=== PATIENT | female | born 1960 | race African-American/Black ===

== ENCOUNTER 2017-01-09 15:01 | Inpatient (IN) | payer MEDICAID ==
[~2017-01-09] VITALS: Ht 165.1 cm; Wt 121.6 kg
[2017-01-09 18:29] LABS: BASOPHILS % 1.2 % (0.0-2.0); EOSINOPHILS % 1.9 % (0.0-5.0); HEMATOCRIT. 38.2 % (36.0-48.0); HEMOGLOBIN. 12.6 g/dL (12.0-16.0); LYMPHOCYTES % 29.9 % (20.0-50.0); MEAN CORPUSCULAR HEMOGLOBIN 25.1 pg (28.0-32.0); MEAN CORPUSCULAR VOLUME 75.9 fL (81.0-99.0); MEAN PLATELET VOLUME 9.6 fl (7.4-10.4); MONOCYTES % 7.3 % (2.0-8.0); NEUTROPHILS % 59.7 % (40.0-76.0); PLATELET 138 x1000/uL (130-400); RED BLOOD CELL COUNT 5.03 mill/uL (4.2-5.4); RED CELL DISTRIBUTION WIDTH 19.9 % (11.6-14.6)
[2017-01-09 18:45] LABS: CARBON DIOXIDE 32 mEq/L (21-32); CHLORIDE 108 mEq/L (98-107); TROPONIN I 0.07 ng/mL (0.00-0.04)
[2017-01-10 00:30] VITALS: BP 177/89
[2017-01-10] MEDS ORDERED: CLONIDINE 0.1MG TABLET PO PRN (00:45)
[2017-01-10] MEDS ORDERED: ACETAMINOPHEN 325MG TABLET PO PRN (00:45)
[2017-01-10] MEDS ORDERED: ONDANSETRON HCL 4MG/2ML VIAL IV PRN (00:45)
[2017-01-10] MEDS ORDERED: IPRATROPIUM/ALBUTEROL 0.5-3(2.5)MG/3ML NEB INH PRN (00:45)
[2017-01-10] MEDS ORDERED: MAGNESIUM/ALUMINUM HYDROXIDE/SIMETHICONE 30ML UDC PO PRN (00:45)
[2017-01-10] MEDS ORDERED: DOCUSATE SODIUM 100MG CAPSULE PO PRN (00:45)
[2017-01-10] MEDS ORDERED: DEXTROSE 50% WATER 50ML SYRINGE IV PRN (01:30)
[2017-01-10] MEDS ORDERED: ATOR20TA65 PO (01:56)
[2017-01-10] MEDS ORDERED: CARV12.545 PO (01:56)
[2017-01-10] MEDS ORDERED: GABA-531 PO (01:56)
[2017-01-10] MEDS ORDERED: GLIP10TA10 PO (01:56)
[2017-01-10] MEDS ORDERED: METF10002 PO (01:56)
[2017-01-10] MEDS ORDERED: LISI-604 PO (01:56)
[2017-01-10 04:00] VITALS: BP 161/79
[2017-01-10 06:35] LABS: CARBON DIOXIDE 31 mEq/L (21-32); CHLORIDE 106 mEq/L (98-107); CREATINE KINASE 159 IU/L (26-192); CREATINE KINASE MB FRACTION 3.2 ng/mL (0.5-3.6); TROPONIN I 0.07 ng/mL (0.00-0.04)
[2017-01-10] MEDS: BLOOD SUGAR DIAGNOSTIC STRIP TEST SCH ×4 (06:59→21:28)
[2017-01-10] MEDS: INSULIN LISPRO 100 UNITS/ML SUBCUT SCH ×5 (07:50→21:33)
[2017-01-10 08:00] VITALS: BP 149/86
[2017-01-10] MEDS ORDERED: ENOXAPARIN 40MG/0.4ML SYR SUBCUT SCH (09:00)
[2017-01-10] MEDS: ASPIRIN 81MG EC TABLET PO SCH (09:38)
[2017-01-10 12:00] VITALS: BP 143/96
[2017-01-10 15:23] LABS: CREATINE KINASE MB FRACTION 2.9 ng/mL (0.5-3.6); TROPONIN I 0.06 ng/mL (0.00-0.04)
[2017-01-10 16:00] VITALS: BP 152/92
[2017-01-10 20:00] VITALS: BP 161/88
[2017-01-10 20:24] LABS: *AMPHETAMINES SCREEN URINE NEGATIVE (NEGATIVE); *BARBITURATES SCREEN URINE NEGATIVE (NEGATIVE); *BENZODIAZEPINES SCREEN URINE NEGATIVE (NEGATIVE); *COCAINE SCREEN URINE NEGATIVE (NEGATIVE); CANNABINOID URINE SCREEN NEGATIVE (NEGATIVE); METHADONE URINE SCREEN NEGATIVE (NEGATIVE); OPIATES URINE SCREEN NEGATIVE (NEGATIVE); PHENCYCLIDINE URINE SCREEN NEGATIVE (NEGATIVE)
[2017-01-10] MEDS: ENOXAPARIN 40MG/0.4ML SYR SUBCUT SCH (21:25)
[2017-01-10] MEDS: INSULIN DETEMIR UD 100 UNITS/ML SYR SUBCUT SCH (21:34)
[2017-01-11] VITALS: BP 142/98
[2017-01-11 04:00] VITALS: BP 151/92
[2017-01-11 06:32] LABS: BASOPHILS % 0.6 % (0.0-2.0); EOSINOPHILS % 1.9 % (0.0-5.0); HEMATOCRIT. 38.1 % (36.0-48.0); HEMOGLOBIN. 12.6 g/dL (12.0-16.0); LYMPHOCYTES % 31.2 % (20.0-50.0); MEAN CORPUSCULAR VOLUME 75.4 fL (81.0-99.0); MEAN PLATELET VOLUME 10.1 fl (7.4-10.4); MONOCYTES % 8.4 % (2.0-8.0); NEUTROPHILS % 57.9 % (40.0-76.0); PLATELET 134 x1000/uL (130-400); RED BLOOD CELL COUNT 5.05 mill/uL (4.2-5.4); RED CELL DISTRIBUTION WIDTH 19.8 % (11.6-14.6)
[2017-01-11 06:55] LABS: CARBON DIOXIDE 29 mEq/L (21-32); CHLORIDE 102 mEq/L (98-107); HDL CHOLESTEROL 28 mg/dL (40-59); LDL CHOLESTEROL 121 mg/dL (5-100)
[2017-01-11] MEDS: BLOOD SUGAR DIAGNOSTIC STRIP TEST SCH ×4 (07:20→21:20)
[2017-01-11] MEDS: INSULIN LISPRO 100 UNITS/ML SUBCUT SCH ×4 (07:50→21:24)
[2017-01-11 07:52] VITALS: BP 161/88
[2017-01-11] MEDS: HYDROCODONE/ACETAMINOPHEN 5/325MG TABLET PO PRN ×2 (09:07→13:36)
[2017-01-11] MEDS: ASPIRIN 81MG EC TABLET PO SCH (09:07)
[2017-01-11] MEDS: ENOXAPARIN 40MG/0.4ML SYR SUBCUT SCH ×2 (09:08→21:18)
[2017-01-11] MEDS: INSULIN DETEMIR UD 100 UNITS/ML SYR SUBCUT SCH ×2 (10:34→21:24)
[2017-01-11 12:00] VITALS: BP 131/86
[2017-01-11 16:02] VITALS: BP 149/92
[2017-01-11 20:00] VITALS: BP 158/88
[2017-01-12] VITALS: BP 160/81
[2017-01-12 04:30] VITALS: BP 155/95
[2017-01-12] MEDS: BLOOD SUGAR DIAGNOSTIC STRIP TEST SCH ×2 (06:36→11:57)
[2017-01-12 07:41] VITALS: BP 154/88
[2017-01-12] MEDS: INSULIN LISPRO 100 UNITS/ML SUBCUT SCH ×2 (08:24→12:00)
[2017-01-12] MEDS: ASPIRIN 81MG EC TABLET PO SCH (08:25)
[2017-01-12] MEDS: ENOXAPARIN 40MG/0.4ML SYR SUBCUT SCH (08:26)
[2017-01-12] MEDS: INSULIN DETEMIR UD 100 UNITS/ML SYR SUBCUT SCH (10:05)
[2017-01-12 12:30] VITALS: BP 140/94
== END 2017-01-12 15:05 | disposition home or self-care (01) | DRG 194 ==
LOC: ER 15:19 → 6WST 22:13 → ENRESERV 22:34
PROVIDERS: ADMIT Internal Medicine; ATTEND Internal Medicine
DX: I11.0 Hypertensive heart disease with heart failure (principal); Z68.41 Body mass index [BMI] 40.0-44.9, adult; I42.9 Cardiomyopathy, unspecified; E66.01 Morbid (severe) obesity due to excess calories; E11.9 Type 2 diabetes mellitus without complications; I50.9 Heart failure, unspecified; E78.5 Hyperlipidemia, unspecified; I25.10 Atherosclerotic heart disease of native coronary artery without angina pectoris; Z91.19 Patient's noncompliance with other medical treatment and regimen; Z95.0 Presence of cardiac pacemaker
CPT/HCPCS: 36415; 71010; 80048; 80053; 80061; 80305; 82550; 82553; 82962; 83880; 84443; 84484; 85025; 93005; 93306; 93970; 99285; J1650; J1815

== ENCOUNTER 2019-04-22 08:41 | Inpatient (IN) | payer OTHER ==
[2019-04-22] VITALS (33 sets, daily range): BP systolic 102–162; BP diastolic 58–102
[~2019-04-22] VITALS: Ht 167.6 cm; Wt 110.3 kg
[~2019-04-22 08:41] MED LIST: ATOR20TA65 PO; CARV12.545 PO; ETOMIDATE 2MG/ML 10ML VIAL IV ONE; GABA-531 PO; GLIP10TA10 PO; LISI-604 PO; METF-416 PO; SUCCINYLCHOLINE CHLORIDE 200MG/10ML IV ONE
[2019-04-22] MEDS ORDERED: PIPERACILLIN/TAZ 3.375G PREMIX 50 ML IV ONE (09:15)
[2019-04-22] MEDS ORDERED: PROPOFOL 10MG/ML 100ML 100 ML IV SCH (09:15)
[2019-04-22] MEDS ORDERED: SUCCINYLCHOLINE CHLORIDE 200MG/10ML IV ONE (09:15)
[2019-04-22] MEDS ORDERED: ETOMIDATE 2MG/ML 10ML VIAL IV ONE (09:15)
[2019-04-22] MEDS ORDERED: SODIUM CHLORIDE 0.9% 1000ML BAG (SEPSIS BOLUS) IV ONE (09:15)
[2019-04-22] MEDS ORDERED: VANCOMYCIN 1 G PREMIX 200 ML IV ONE (09:15)
[2019-04-22] MEDS ORDERED: PROPOFOL 200MG/20ML VIAL IV ONE (09:15)
[2019-04-22 09:31] LABS: BASOPHILS % 1.5 % (0.0-2.0); EOSINOPHILS % 1.3 % (0.0-5.0); HEMATOCRIT. 43.1 % (36.0-48.0); HEMOGLOBIN. 13.5 g/dL (12.0-16.0); LYMPHOCYTES % 35.2 % (20.0-50.0); MEAN CORPUSCULAR HEMOGLOBIN 25.1 pg (28.0-32.0); MEAN PLATELET VOLUME 9.8 fl (7.4-10.4); MONOCYTES % 6.3 % (2.0-8.0); NEUTROPHILS % 55.7 % (40.0-76.0); PLATELET 197 x1000/uL (130-400); RED BLOOD CELL COUNT 5.39 mill/uL (4.2-5.4); RED CELL DISTRIBUTION WIDTH 19.7 % (11.6-14.6)
[2019-04-22 09:38] LABS: CHLORIDE 108 mEq/L (98-107)
[2019-04-22 09:40] LABS: PARTIAL THROMBOPLASTIN TIME 27.3 sec (23.4-31.0); PROTHROMBIN TIME 10.6 sec (9.6-11.0)
[2019-04-22] MEDS ORDERED: FUROSEMIDE 40MG/4ML VIAL IV ONE (09:45)
[2019-04-22] MEDS ORDERED: ASPIRIN 300MG SUPP PR ONE (09:45)
[2019-04-22] MEDS ORDERED: NITROGLYCERIN OINT 1GM/INCH UDPKT TD ONE (09:45)
[2019-04-22] MEDS ORDERED: METRONIDAZOLE 500 MG PREMIX 100 ML IV ONE (10:00)
[2019-04-22 10:26] LABS: BG BASE EXCESS -5.6 mmol/L (-2.0-2.0); BG CARBOXYHEMOGLOBIN 3.2 % (0.5-1.5); BG DEOXYHEMOGLOBIN 23.6 % (0.0-5.0); BG FRACTION INSPIRED OXYGEN 100; BG HCO3 ACT 22.7 mmol/L (22.0-26.0); BG METHEMOGLOBIN 0.3 % (0.0-1.5); BG OXYGEN SATURATION 75.5 % (92.0-98.5); BG OXYHEMOGLOBIN 72.9 % (94.0-97.0); BG PCO2 56.7 mmHg (35.0-45.0); BG PH 7.221 (7.350-7.450); BG PO2 46.4 mmHg (75.0-100.0); BG SAMPLE SITE RIGHT BRACHIAL; BG TIDAL VOLUME(mL) 500 mL; BG TOTAL HEMOGLOBIN 13.9 g/dL (12.0-18.0); BG VENT MODE VENT - A/C; BG VENT RATE 14 set
[2019-04-22 10:44] LABS: CLARITY URINE CLOUDY (CLEAR); COLOR URINE YELLOW (YELLOW); KETONES URINE NEGATIVE (NEGATIVE); LEUKOCYTE ESTERASE URINE NEGATIVE (NEGATIVE); NITRITE URINE NEGATIVE (NEGATIVE); OCCULT BLOOD URINE 3+ (NEGATIVE); PROTEIN URINE 4+ (NEGATIVE); SPECIFIC GRAVITY URINE 1.019 (1.005-1.030); UROBILINOGEN URINE 0.2 E.U./dL (0.2-1.0)
[2019-04-22 12:29] LABS: BG BASE EXCESS -1.3 mmol/L (-2.0-2.0); BG CARBOXYHEMOGLOBIN 2.6 % (0.5-1.5); BG DEOXYHEMOGLOBIN 10.7 % (0.0-5.0); BG FRACTION INSPIRED OXYGEN 100; BG METHEMOGLOBIN 0.2 % (0.0-1.5); BG OXYHEMOGLOBIN 86.5 % (94.0-97.0); BG PCO2 54.5 mmHg (35.0-45.0); BG PH 7.297 (7.350-7.450); BG PO2 59.7 mmHg (75.0-100.0); BG SAMPLE SITE RIGHT BRACHIAL; BG TIDAL VOLUME(mL) 500 mL; BG TOTAL HEMOGLOBIN 13.9 g/dL (12.0-18.0); BG VENT MODE VENT - A/C; BG VENT RATE 14 set
[2019-04-22] MEDS ORDERED: ONDANSETRON HCL 4MG/2ML INJ IV PRN (13:15)
[2019-04-22] MEDS ORDERED: IPRATROPIUM/ALBUTEROL 0.5-3(2.5)MG/3ML NEB HHN PRN (13:45)
[2019-04-22] MEDS ORDERED: PIPERACILLIN/TAZ 3.375G PREMIX 50 ML IV SCH (15:00)
[2019-04-22] MEDS ORDERED: NOREPINEPHRINE 16 MG in DEXT 5% WATER 484 ML IV PRN ×4 (15:00)
[2019-04-22] MEDS: PROPOFOL 10MG/ML 100ML 100 ML IV PRN ×3 (15:06→20:35)
[2019-04-22] MEDS: ENOXAPARIN 30MG/0.3ML SYR SUBCUT SCH (15:38)
[2019-04-22] MEDS: GABAPENTIN 300MG CAPSULE PO SCH (15:38)
[2019-04-22] MEDS: LISINOPRIL 20MG TABLET PO SCH (15:38)
[2019-04-22] MEDS: PIPERACILLIN/TAZOBACTAM 3.375 G in DEXTROSE 5% WATER 50 ML IV SCH ×2 (15:39→21:08)
[2019-04-22 15:57] LABS: BG BASE EXCESS -0.3 mmol/L (-2.0-2.0); BG CARBOXYHEMOGLOBIN 1.2 % (0.5-1.5); BG DEOXYHEMOGLOBIN 2.4 % (0.0-5.0); BG FRACTION INSPIRED OXYGEN 100; BG HCO3 ACT 26.7 mmol/L (22.0-26.0); BG METHEMOGLOBIN 0.3 % (0.0-1.5); BG OXYGEN SATURATION 97.6 % (92.0-98.5); BG OXYHEMOGLOBIN 96.1 % (94.0-97.0); BG PCO2 53.5 mmHg (35.0-45.0); BG PH 7.316 (7.350-7.450); BG PO2 108.5 mmHg (75.0-100.0); BG SAMPLE SITE RIGHT RADIAL; BG TIDAL VOLUME(mL) 500 mL; BG TOTAL HEMOGLOBIN 13.6 g/dL (12.0-18.0); BG VENT MODE VENT - A/C; BG VENT RATE 16 set
[2019-04-22] MEDS: IPRATROPIUM/ALBUTEROL 0.5-3(2.5)MG/3ML NEB HHN SCH ×2 (16:44→20:26)
[2019-04-22] MEDS: VANCOMYCIN 1,250 MG in DEXT 5% WATER 250 ML IV SCH (17:01)
[2019-04-22] MEDS: FUROSEMIDE 100MG/10ML VIAL IV SCH (17:02)
[2019-04-22] MEDS ORDERED: DEXTROSE 50% WATER 50ML SYRINGE IV PRN (18:00)
[2019-04-22] MEDS: INSULIN LISPRO 100 UNITS/ML SUBCUT SCH ×3 (18:12→21:32)
[2019-04-22] MEDS: BLOOD SUGAR DIAGNOSTIC STRIP TEST SCH ×2 (18:13→21:33)
[2019-04-22] MEDS: ATORVASTATIN CALCIUM 20MG TABLET PO SCH (21:07)
[2019-04-22] MEDS: CARVEDILOL 12.5MG TABLET PO SCH (21:08)
[2019-04-22] MEDS: FAMOTIDINE 20MG TABLET PO SCH (21:08)
[2019-04-23] VITALS (80 sets, daily range): BP systolic 88–160; BP diastolic 55–92
[2019-04-23] MEDS: PROPOFOL 10MG/ML 100ML 100 ML IV PRN ×6 (00:20→19:53)
[2019-04-23] MEDS: IPRATROPIUM/ALBUTEROL 0.5-3(2.5)MG/3ML NEB HHN SCH ×6 (00:28→20:38)
[2019-04-23 05:15] LABS: BASOPHILS % 0.2 % (0.0-2.0); EOSINOPHILS % 0.1 % (0.0-5.0); HEMATOCRIT. 35.4 % (36.0-48.0); HEMOGLOBIN. 11.5 g/dL (12.0-16.0); LYMPHOCYTES % 7.7 % (20.0-50.0); MEAN CORPUSCULAR HEMOGLOBIN 25.1 pg (28.0-32.0); MEAN CORPUSCULAR VOLUME 77.2 fL (81.0-99.0); MEAN PLATELET VOLUME 9.9 fl (7.4-10.4); MONOCYTES % 4.4 % (2.0-8.0); NEUTROPHILS % 87.6 % (40.0-76.0); PLATELET 144 x1000/uL (130-400); RED BLOOD CELL COUNT 4.59 mill/uL (4.2-5.4); RED CELL DISTRIBUTION WIDTH 19.9 % (11.6-14.6)
[2019-04-23 05:20] LABS: CHLORIDE 107 mEq/L (98-107)
[2019-04-23 05:29] LABS: LDL CHOLESTEROL 61 mg/dL (5-100)
[2019-04-23 05:30] LABS: CREATINE KINASE 453 IU/L (26-192); CREATINE KINASE MB FRACTION 3.7 ng/mL (0.5-3.6)
[2019-04-23 05:31] LABS: HDL CHOLESTEROL 30 mg/dL (40-59)
[2019-04-23] MEDS: PIPERACILLIN/TAZOBACTAM 3.375 G in DEXTROSE 5% WATER 50 ML IV SCH ×3 (06:28→22:22)
[2019-04-23] MEDS: VANCOMYCIN 1,250 MG in DEXT 5% WATER 250 ML IV SCH (06:28)
[2019-04-23] MEDS: ENOXAPARIN 30MG/0.3ML SYR SUBCUT SCH ×2 (06:30→17:48)
[2019-04-23] MEDS: BLOOD SUGAR DIAGNOSTIC STRIP TEST SCH ×4 (07:09→21:00)
[2019-04-23] MEDS: INSULIN LISPRO 100 UNITS/ML SUBCUT SCH ×4 (07:12→21:00)
[2019-04-23 08:38] LABS: BG BASE EXCESS 1.2 mmol/L (-2.0-2.0); BG CARBOXYHEMOGLOBIN 0.4 % (0.5-1.5); BG DEOXYHEMOGLOBIN 0.9 % (0.0-5.0); BG FRACTION INSPIRED OXYGEN 80; BG METHEMOGLOBIN 0.2 % (0.0-1.5); BG OXYGEN SATURATION 99.1 % (92.0-98.5); BG OXYHEMOGLOBIN 98.5 % (94.0-97.0); BG PCO2 47.4 mmHg (35.0-45.0); BG PH 7.373 (7.350-7.450); BG PO2 194.4 mmHg (75.0-100.0); BG SAMPLE SITE RIGHT RADIAL; BG TIDAL VOLUME(mL) 500 mL; BG TOTAL HEMOGLOBIN 12.3 g/dL (12.0-18.0); BG VENT MODE VENT - A/C; BG VENT RATE 16 set
[2019-04-23] MEDS: GABAPENTIN 300MG CAPSULE PO SCH (09:45)
[2019-04-23] MEDS: CARVEDILOL 12.5MG TABLET PO SCH ×2 (09:45→21:29)
[2019-04-23] MEDS: FAMOTIDINE 20MG TABLET PO SCH ×2 (09:45→21:27)
[2019-04-23] MEDS: LISINOPRIL 20MG TABLET PO SCH (09:45)
[2019-04-23] MEDS: FUROSEMIDE 100MG/10ML VIAL IV SCH ×2 (09:45→17:48)
[2019-04-23] MEDS: POTASSIUM CHLORIDE 20MEQ/PACKET PO SCH ×2 (10:10→17:48)
[2019-04-23 11:55] LABS: BG BASE EXCESS 1.6 mmol/L (-2.0-2.0); BG CARBOXYHEMOGLOBIN 0.1 % (0.5-1.5); BG DEOXYHEMOGLOBIN 1.7 % (0.0-5.0); BG FRACTION INSPIRED OXYGEN 60; BG HCO3 ACT 26.3 mmol/L (22.0-26.0); BG OXYGEN SATURATION 98.3 % (92.0-98.5); BG OXYHEMOGLOBIN 98.2 % (94.0-97.0); BG PCO2 41.8 mmHg (35.0-45.0); BG PH 7.417 (7.350-7.450); BG SAMPLE SITE RIGHT RADIAL; BG TIDAL VOLUME(mL) 500 mL; BG TOTAL HEMOGLOBIN 12.2 g/dL (12.0-18.0); BG VENT MODE VENT - A/C; BG VENT RATE 16 set
[2019-04-23] MEDS ORDERED: MAGNESIUM 2 G PREMIX 50 ML IV SCH (12:00)
[2019-04-23] MEDS ORDERED: FAMOTIDINE 20MG TABLET PO SCH (21:00)
[2019-04-23] MEDS: ATORVASTATIN CALCIUM 20MG TABLET PO SCH (21:27)
[2019-04-24] VITALS (74 sets, daily range): BP systolic 67–163; BP diastolic 38–111
[2019-04-24] MEDS: IPRATROPIUM/ALBUTEROL 0.5-3(2.5)MG/3ML NEB HHN SCH ×6 (00:18→19:53)
[2019-04-24] MEDS ORDERED: VANCOMYCIN 1 G PREMIX 200 ML IV SCH ×2 (01:00→18:00)
[2019-04-24] MEDS: PROPOFOL 10MG/ML 100ML 100 ML IV PRN ×7 (02:49→23:00)
[2019-04-24] MEDS: PIPERACILLIN/TAZOBACTAM 3.375 G in DEXTROSE 5% WATER 50 ML IV SCH (06:27)
[2019-04-24] MEDS: ENOXAPARIN 30MG/0.3ML SYR SUBCUT SCH ×2 (06:28→17:18)
[2019-04-24 06:32] LABS: CHLORIDE 108 mEq/L (98-107)
[2019-04-24 06:38] LABS: EOSINOPHILS % 1.2 % (0.0-5.0); HEMATOCRIT. 34.4 % (36.0-48.0); HEMOGLOBIN. 11.4 g/dL (12.0-16.0); LYMPHOCYTES % 17.3 % (20.0-50.0); MEAN CORPUSCULAR HEMOGLOBIN 25.3 pg (28.0-32.0); MEAN CORPUSCULAR VOLUME 76.7 fL (81.0-99.0); MEAN PLATELET VOLUME 9.4 fl (7.4-10.4); MONOCYTES % 7.1 % (2.0-8.0); NEUTROPHILS % 73.4 % (40.0-76.0); PLATELET 134 x1000/uL (130-400); RED BLOOD CELL COUNT 4.49 mill/uL (4.2-5.4); RED CELL DISTRIBUTION WIDTH 20.3 % (11.6-14.6)
[2019-04-24 06:46] LABS: CREATINE KINASE 797 IU/L (26-192)
[2019-04-24 06:50] LABS: CREATINE KINASE MB FRACTION 1.3 ng/mL (0.5-3.6)
[2019-04-24] MEDS: BLOOD SUGAR DIAGNOSTIC STRIP TEST SCH ×4 (06:54→23:43)
[2019-04-24] MEDS: CARVEDILOL 12.5MG TABLET PO SCH ×2 (08:58→21:31)
[2019-04-24] MEDS: GABAPENTIN 300MG CAPSULE PO SCH (08:58)
[2019-04-24] MEDS: FUROSEMIDE 100MG/10ML VIAL IV SCH ×2 (08:58→16:40)
[2019-04-24] MEDS: FAMOTIDINE 20MG TABLET PO SCH ×2 (08:58→21:31)
[2019-04-24] MEDS: POTASSIUM CHLORIDE 20MEQ/PACKET PO SCH ×2 (08:58→16:40)
[2019-04-24] MEDS: LISINOPRIL 20MG TABLET PO SCH (08:58)
[2019-04-24] MEDS: INSULIN LISPRO 100 UNITS/ML SUBCUT SCH ×4 (08:59→23:42)
[2019-04-24] MEDS ORDERED: FAMOTIDINE 20MG TABLET PO SCH (09:00)
[2019-04-24 09:02] LABS: BG BASE EXCESS 2.9 mmol/L (-2.0-2.0); BG CARBOXYHEMOGLOBIN 0.4 % (0.5-1.5); BG FRACTION INSPIRED OXYGEN 45; BG HCO3 ACT 28.4 mmol/L (22.0-26.0); BG METHEMOGLOBIN 0.2 % (0.0-1.5); BG OXYHEMOGLOBIN 97.4 % (94.0-97.0); BG PCO2 47.4 mmHg (35.0-45.0); BG PH 7.395 (7.350-7.450); BG SAMPLE SITE LEFT RADIAL; BG TIDAL VOLUME(mL) 500 mL; BG TOTAL HEMOGLOBIN 12.3 g/dL (12.0-18.0); BG VENT MODE VENT - A/C; BG VENT RATE 16 set
[2019-04-24] MEDS ORDERED: LORAZEPAM 2MG/ML CPJ IV PRN (10:00)
[2019-04-24] MEDS ORDERED: SODIUM BICARBONATE 4% (2.4MEQ) 5ML VIAL IV ONE (11:30)
[2019-04-24] MEDS ORDERED: LIDOCAINE HCL 1% 20ML VIAL (Pyxis) INJ ONE (11:30)
[2019-04-24] MEDS: PIPERACILLIN/TAZOBACTAM 3.375 G in DEXT 5% WATER 100 ML IV SCH ×3 (12:00→23:48)
[2019-04-24] MEDS: ACETAMINOPHEN 325MG TABLET PO PRN (15:06)
[2019-04-24] MEDS: ATORVASTATIN CALCIUM 20MG TABLET PO SCH (21:31)
[2019-04-25] VITALS (46 sets, daily range): BP systolic 98–149; BP diastolic 0–101
[2019-04-25] MEDS: IPRATROPIUM/ALBUTEROL 0.5-3(2.5)MG/3ML NEB HHN SCH ×6 (00:27→19:42)
[2019-04-25] MEDS: PROPOFOL 10MG/ML 100ML 100 ML IV PRN ×2 (04:18→06:44)
[2019-04-25 05:39] LABS: BASOPHILS % 0.9 % (0.0-2.0); EOSINOPHILS % 2.3 % (0.0-5.0); HEMATOCRIT. 34.9 % (36.0-48.0); HEMOGLOBIN. 11.6 g/dL (12.0-16.0); LYMPHOCYTES % 14.9 % (20.0-50.0); MEAN CORPUSCULAR HEMOGLOBIN 25.5 pg (28.0-32.0); MEAN CORPUSCULAR VOLUME 76.6 fL (81.0-99.0); MEAN PLATELET VOLUME 9.9 fl (7.4-10.4); MONOCYTES % 7.7 % (2.0-8.0); NEUTROPHILS % 74.2 % (40.0-76.0); PLATELET 142 x1000/uL (130-400); RED BLOOD CELL COUNT 4.56 mill/uL (4.2-5.4); RED CELL DISTRIBUTION WIDTH 19.9 % (11.6-14.6)
[2019-04-25] MEDS: PIPERACILLIN/TAZOBACTAM 3.375 G in DEXT 5% WATER 100 ML IV SCH ×3 (05:50→17:33)
[2019-04-25] MEDS: ENOXAPARIN 30MG/0.3ML SYR SUBCUT SCH ×2 (05:50→17:33)
[2019-04-25] MEDS: BLOOD SUGAR DIAGNOSTIC STRIP TEST SCH ×3 (06:50→17:33)
[2019-04-25] MEDS: INSULIN LISPRO 100 UNITS/ML SUBCUT SCH ×3 (06:52→17:50)
[2019-04-25 08:04] LABS: BG BASE EXCESS 2.4 mmol/L (-2.0-2.0); BG CARBOXYHEMOGLOBIN 0.3 % (0.5-1.5); BG DEOXYHEMOGLOBIN 2.7 % (0.0-5.0); BG FRACTION INSPIRED OXYGEN 45; BG HCO3 ACT 27.5 mmol/L (22.0-26.0); BG OXYGEN SATURATION 97.3 % (92.0-98.5); BG PCO2 44.2 mmHg (35.0-45.0); BG PH 7.411 (7.350-7.450); BG PO2 105.1 mmHg (75.0-100.0); BG SAMPLE SITE RIGHT RADIAL; BG TIDAL VOLUME(mL) 500 mL; BG VENT MODE VENT - A/C; BG VENT RATE 16 set
[2019-04-25] MEDS: FUROSEMIDE 100MG/10ML VIAL IV SCH ×2 (08:38→16:41)
[2019-04-25] MEDS: GABAPENTIN 300MG CAPSULE PO SCH (08:39)
[2019-04-25] MEDS: POTASSIUM CHLORIDE 20MEQ/PACKET PO SCH ×2 (08:39→16:42)
[2019-04-25] MEDS: FAMOTIDINE 20MG TABLET PO SCH ×2 (08:39→22:14)
[2019-04-25] MEDS: CARVEDILOL 12.5MG TABLET PO SCH ×2 (08:39→22:14)
[2019-04-25] MEDS: LISINOPRIL 20MG TABLET PO SCH (08:40)
[2019-04-25] MEDS: MIDAZOLAM HCL 100 MG in DEXT 5% WATER 80 ML IV PRN (11:39)
[2019-04-25] MEDS: ACETAMINOPHEN 325MG TABLET PO PRN ×2 (12:54→22:15)
[2019-04-25] MEDS ORDERED: CEFTRIAXONE 2 G PREMIX 50 ML IV SCH (22:00)
[2019-04-25] MEDS: ATORVASTATIN CALCIUM 20MG TABLET PO SCH (22:13)
[2019-04-26] VITALS (52 sets, daily range): BP systolic 73–183; BP diastolic 35–127
[2019-04-26] MEDS: IPRATROPIUM/ALBUTEROL 0.5-3(2.5)MG/3ML NEB HHN SCH ×6 (00:19→20:49)
[2019-04-26] MEDS: MIDAZOLAM HCL 100 MG in DEXT 5% WATER 80 ML IV PRN (00:46)
[2019-04-26] MEDS: INSULIN LISPRO 100 UNITS/ML SUBCUT SCH ×4 (01:37→17:31)
[2019-04-26] MEDS: CEFTRIAXONE 2 G in DEXTROSE 5% WATER 50 ML IV SCH ×2 (01:39→21:07)
[2019-04-26 05:20] LABS: BASOPHILS % 0.8 % (0.0-2.0); EOSINOPHILS % 3.3 % (0.0-5.0); HEMATOCRIT. 34.5 % (36.0-48.0); HEMOGLOBIN. 11.5 g/dL (12.0-16.0); LYMPHOCYTES % 14.7 % (20.0-50.0); MEAN CORPUSCULAR HEMOGLOBIN 25.3 pg (28.0-32.0); MEAN CORPUSCULAR VOLUME 76.2 fL (81.0-99.0); MEAN PLATELET VOLUME 9.5 fl (7.4-10.4); MONOCYTES % 8.7 % (2.0-8.0); NEUTROPHILS % 72.5 % (40.0-76.0); PLATELET 150 x1000/uL (130-400); RED BLOOD CELL COUNT 4.52 mill/uL (4.2-5.4); RED CELL DISTRIBUTION WIDTH 19.6 % (11.6-14.6)
[2019-04-26] MEDS: BLOOD SUGAR DIAGNOSTIC STRIP TEST SCH ×5 (06:27→23:52)
[2019-04-26] MEDS: ENOXAPARIN 30MG/0.3ML SYR SUBCUT SCH ×2 (06:28→17:30)
[2019-04-26 07:45] LABS: BG BASE EXCESS 3.3 mmol/L (-2.0-2.0); BG CARBOXYHEMOGLOBIN 0.3 % (0.5-1.5); BG DEOXYHEMOGLOBIN 1.4 % (0.0-5.0); BG FRACTION INSPIRED OXYGEN 45; BG HCO3 ACT 28.1 mmol/L (22.0-26.0); BG METHEMOGLOBIN 0.3 % (0.0-1.5); BG OXYGEN SATURATION 98.6 % (92.0-98.5); BG PCO2 43.8 mmHg (35.0-45.0); BG PH 7.425 (7.350-7.450); BG PO2 143.8 mmHg (75.0-100.0); BG SAMPLE SITE RIGHT RADIAL; BG TIDAL VOLUME(mL) 500 mL; BG TOTAL HEMOGLOBIN 12.2 g/dL (12.0-18.0); BG VENT MODE VENT - A/C; BG VENT RATE 16 set
[2019-04-26] MEDS: FUROSEMIDE 100MG/10ML VIAL IV SCH ×2 (08:48→17:30)
[2019-04-26] MEDS: CARVEDILOL 12.5MG TABLET PO SCH ×2 (08:48→21:07)
[2019-04-26] MEDS: GABAPENTIN 300MG CAPSULE PO SCH (08:49)
[2019-04-26] MEDS: FAMOTIDINE 20MG TABLET PO SCH ×2 (08:49→21:07)
[2019-04-26] MEDS: LISINOPRIL 20MG TABLET PO SCH (08:50)
[2019-04-26] MEDS: POTASSIUM CHLORIDE 20MEQ/PACKET PO SCH ×2 (08:50→17:30)
[2019-04-26] MEDS ORDERED: CLONIDINE 0.1MG TABLET PO PRN (12:00)
[2019-04-26] MEDS: AMLODIPINE 2.5MG TABLET PO SCH ×2 (12:09→21:07)
[2019-04-26] MEDS: LORAZEPAM 2MG/ML CPJ IV PRN ×2 (12:09→20:58)
[2019-04-26] MEDS: MORPHINE SULFATE 2 MG/ML CPJ (NOT FOR IM USE) IV PRN (20:04)
[2019-04-26] MEDS: ATORVASTATIN CALCIUM 20MG TABLET PO SCH (21:08)
[2019-04-26] MEDS: ACETAMINOPHEN 325MG TABLET PO PRN (23:58)
[2019-04-27] VITALS (45 sets, daily range): BP systolic 101–166; BP diastolic 50–84
[2019-04-27] MEDS: IPRATROPIUM/ALBUTEROL 0.5-3(2.5)MG/3ML NEB HHN SCH ×6 (00:13→20:43)
[2019-04-27] MEDS: MORPHINE SULFATE 2 MG/ML CPJ (NOT FOR IM USE) IV PRN ×3 (01:46→13:20)
[2019-04-27] MEDS: LORAZEPAM 2MG/ML CPJ IV PRN (01:46)
[2019-04-27] MEDS: BLOOD SUGAR DIAGNOSTIC STRIP TEST SCH ×4 (05:22→23:15)
[2019-04-27 05:25] LABS: EOSINOPHILS % 2.6 % (0.0-5.0); HEMATOCRIT. 36.3 % (36.0-48.0); HEMOGLOBIN. 11.8 g/dL (12.0-16.0); MEAN CORPUSCULAR HEMOGLOBIN 25.2 pg (28.0-32.0); MEAN CORPUSCULAR VOLUME 77.2 fL (81.0-99.0); MEAN PLATELET VOLUME 9.5 fl (7.4-10.4); MONOCYTES % 11.4 % (2.0-8.0); PLATELET 154 x1000/uL (130-400); RED CELL DISTRIBUTION WIDTH 19.3 % (11.6-14.6)
[2019-04-27] MEDS: INSULIN LISPRO 100 UNITS/ML SUBCUT SCH ×5 (05:28→23:19)
[2019-04-27] MEDS: ENOXAPARIN 30MG/0.3ML SYR SUBCUT SCH ×2 (05:28→17:04)
[2019-04-27] MEDS: CARVEDILOL 12.5MG TABLET PO SCH ×2 (08:47→21:20)
[2019-04-27] MEDS: GABAPENTIN 300MG CAPSULE PO SCH (08:47)
[2019-04-27] MEDS: POTASSIUM CHLORIDE 20MEQ/PACKET PO SCH ×2 (08:47→17:03)
[2019-04-27] MEDS: AMLODIPINE 2.5MG TABLET PO SCH ×2 (08:48→21:00)
[2019-04-27] MEDS: FAMOTIDINE 20MG TABLET PO SCH ×2 (08:48→20:23)
[2019-04-27] MEDS: FUROSEMIDE 100MG/10ML VIAL IV SCH ×2 (08:49→17:03)
[2019-04-27] MEDS: LISINOPRIL 20MG TABLET PO SCH (08:49)
[2019-04-27 10:13] LABS: BG BASE EXCESS 5.3 mmol/L (-2.0-2.0); BG CARBOXYHEMOGLOBIN 0.7 % (0.5-1.5); BG DEOXYHEMOGLOBIN 4.9 % (0.0-5.0); BG FRACTION INSPIRED OXYGEN 35; BG HCO3 ACT 33.3 mmol/L (22.0-26.0); BG METHEMOGLOBIN 0.2 % (0.0-1.5); BG OXYGEN SATURATION 95.1 % (92.0-98.5); BG OXYHEMOGLOBIN 94.2 % (94.0-97.0); BG PCO2 64.9 mmHg (35.0-45.0); BG PH 7.328 (7.350-7.450); BG PO2 84.6 mmHg (75.0-100.0); BG PRESSURE SUPPORT 8; BG SAMPLE SITE RIGHT RADIAL; BG TOTAL HEMOGLOBIN 13.6 g/dL (12.0-18.0); BG VENT MODE MASK - CPAP
[2019-04-27] MEDS: ACETAMINOPHEN 325MG TABLET PO PRN ×2 (17:03→20:24)
[2019-04-27] MEDS: ATORVASTATIN CALCIUM 20MG TABLET PO SCH (20:23)
[2019-04-27] MEDS: CEFTRIAXONE 2 G in DEXTROSE 5% WATER 50 ML IV SCH (20:24)
[2019-04-28] VITALS (44 sets, daily range): BP systolic 78–150; BP diastolic 33–97
[2019-04-28] MEDS: IPRATROPIUM/ALBUTEROL 0.5-3(2.5)MG/3ML NEB HHN SCH ×7 (00:17→23:57)
[2019-04-28] MEDS: LORAZEPAM 2MG/ML CPJ IV PRN ×2 (00:42→13:48)
[2019-04-28] MEDS: ENOXAPARIN 30MG/0.3ML SYR SUBCUT SCH ×2 (05:22→18:03)
[2019-04-28] MEDS: ACETAMINOPHEN 325MG TABLET PO PRN (05:22)
[2019-04-28] MEDS: INSULIN LISPRO 100 UNITS/ML SUBCUT SCH ×3 (05:24→18:04)
[2019-04-28] MEDS: BLOOD SUGAR DIAGNOSTIC STRIP TEST SCH ×3 (05:24→18:04)
[2019-04-28] MEDS: POTASSIUM CHLORIDE 20MEQ/PACKET PO SCH ×2 (08:04→18:03)
[2019-04-28] MEDS: FUROSEMIDE 100MG/10ML VIAL IV SCH ×2 (08:04→18:03)
[2019-04-28] MEDS: GABAPENTIN 300MG CAPSULE PO SCH (08:05)
[2019-04-28] MEDS: AMLODIPINE 2.5MG TABLET PO SCH ×2 (08:10→23:01)
[2019-04-28] MEDS: CARVEDILOL 12.5MG TABLET PO SCH ×2 (08:11→23:01)
[2019-04-28] MEDS: FAMOTIDINE 20MG TABLET PO SCH ×2 (08:11→23:07)
[2019-04-28] MEDS: LISINOPRIL 20MG TABLET PO SCH (08:12)
[2019-04-28] MEDS ORDERED: METHYLPREDNISOLONE SOD SUCC 125 MG/2 ML VIAL IV NR (08:45)
[2019-04-28] MEDS ORDERED: TERBUTALINE SULFATE 1MG/ML VIAL SUBCUT NR (08:45)
[2019-04-28 09:52] LABS: BASOPHILS % 0.4 % (0.0-2.0); EOSINOPHILS % 1.2 % (0.0-5.0); HEMATOCRIT. 37.5 % (36.0-48.0); LYMPHOCYTES % 10.3 % (20.0-50.0); MEAN CORPUSCULAR VOLUME 77.8 fL (81.0-99.0); MEAN PLATELET VOLUME 9.5 fl (7.4-10.4); MONOCYTES % 9.8 % (2.0-8.0); NEUTROPHILS % 78.3 % (40.0-76.0); PLATELET 166 x1000/uL (130-400); RED BLOOD CELL COUNT 4.82 mill/uL (4.2-5.4); RED CELL DISTRIBUTION WIDTH 19.1 % (11.6-14.6)
[2019-04-28] MEDS: MORPHINE SULFATE 2 MG/ML CPJ (NOT FOR IM USE) IV PRN (14:12)
[2019-04-28] MEDS: METHYLPREDNISOLONE SOD SUCC 40 MG/ML VIAL IV SCH ×2 (16:02→23:07)
[2019-04-28] MEDS: NYSTATIN POWDER 15GM TOP SCH (18:03)
[2019-04-28] MEDS: ATORVASTATIN CALCIUM 20MG TABLET PO SCH (23:01)
[2019-04-28] MEDS: CEFTRIAXONE 2 G in DEXTROSE 5% WATER 50 ML IV SCH (23:02)
[2019-04-29] VITALS (37 sets, daily range): BP systolic 102–168; BP diastolic 55–101
[2019-04-29] MEDS: BLOOD SUGAR DIAGNOSTIC STRIP TEST SCH ×4 (00:17→17:35)
[2019-04-29] MEDS: INSULIN LISPRO 100 UNITS/ML SUBCUT SCH ×4 (00:19→17:43)
[2019-04-29] MEDS: LORAZEPAM 2MG/ML CPJ IV PRN ×3 (01:30→22:17)
[2019-04-29] MEDS: MORPHINE SULFATE 2 MG/ML CPJ (NOT FOR IM USE) IV PRN ×2 (02:29→22:17)
[2019-04-29] MEDS: IPRATROPIUM/ALBUTEROL 0.5-3(2.5)MG/3ML NEB HHN SCH ×5 (04:00→20:41)
[2019-04-29] MEDS: METHYLPREDNISOLONE SOD SUCC 40 MG/ML VIAL IV SCH ×3 (05:47→22:49)
[2019-04-29] MEDS: ENOXAPARIN 30MG/0.3ML SYR SUBCUT SCH ×2 (05:48→17:42)
[2019-04-29 06:06] LABS: BASOPHILS % 0.6 % (0.0-2.0); HEMATOCRIT. 37.1 % (36.0-48.0); HEMOGLOBIN. 11.8 g/dL (12.0-16.0); LYMPHOCYTES % 7.7 % (20.0-50.0); MEAN CORPUSCULAR VOLUME 78.6 fL (81.0-99.0); MEAN PLATELET VOLUME 9.9 fl (7.4-10.4); MONOCYTES % 6.9 % (2.0-8.0); NEUTROPHILS % 84.8 % (40.0-76.0); PLATELET 187 x1000/uL (130-400); RED BLOOD CELL COUNT 4.71 mill/uL (4.2-5.4); RED CELL DISTRIBUTION WIDTH 19.9 % (11.6-14.6)
[2019-04-29] MEDS: AMLODIPINE 2.5MG TABLET PO SCH ×2 (09:00→21:44)
[2019-04-29] MEDS: FAMOTIDINE 20MG TABLET PO SCH ×2 (09:07→21:44)
[2019-04-29] MEDS: GABAPENTIN 300MG CAPSULE PO SCH (09:08)
[2019-04-29] MEDS: CARVEDILOL 12.5MG TABLET PO SCH ×2 (09:08→21:44)
[2019-04-29] MEDS ORDERED: SODIUM POLYSTYRENE SULFONATE 15 G/60 ML BOT PO NR (10:00)
[2019-04-29] MEDS ORDERED: LORAZEPAM 2MG/ML CPJ IV NR (10:00)
[2019-04-29] MEDS: GABAPENTIN SOLN 50MG/1ML UDC PO SCH (11:47)
[2019-04-29 12:28] LABS: CLARITY URINE TURBID (CLEAR); COLOR URINE YELLOW (YELLOW); KETONES URINE NEGATIVE (NEGATIVE); LEUKOCYTE ESTERASE URINE 1+ (NEGATIVE); NITRITE URINE NEGATIVE (NEGATIVE); OCCULT BLOOD URINE 3+ (NEGATIVE); PROTEIN URINE 2+ (NEGATIVE); SPECIFIC GRAVITY URINE 1.015 (1.005-1.030); UROBILINOGEN URINE 0.2 E.U./dL (0.2-1.0)
[2019-04-29] MEDS: NYSTATIN POWDER 15GM TOP SCH ×2 (13:35→17:42)
[2019-04-29] MEDS ORDERED: MEROPENEM 500 MG in SODIUM CHLORIDE 0.9% 50 ML IV SCH (13:45)
[2019-04-29] MEDS: MEROPENEM 1000MG in NORMAL SALINE 100ML IV SCH (15:01)
[2019-04-29] MEDS ORDERED: VANCOMYCIN 2,000 MG in DEXT 5% WATER 500 ML IV NR (15:30)
[2019-04-29] MEDS: ATORVASTATIN CALCIUM 20MG TABLET PO SCH (21:43)
[2019-04-30] VITALS (31 sets, daily range): BP systolic 94–186; BP diastolic 58–145
[2019-04-30] MEDS: IPRATROPIUM/ALBUTEROL 0.5-3(2.5)MG/3ML NEB HHN SCH ×6 (00:42→20:22)
[2019-04-30] MEDS: MEROPENEM 1000MG in NORMAL SALINE 100ML IV SCH ×2 (03:33→15:30)
[2019-04-30] MEDS: INSULIN LISPRO 100 UNITS/ML SUBCUT SCH ×4 (03:35→18:00)
[2019-04-30 05:30] LABS: BASOPHILS % 0.9 % (0.0-2.0); HEMOGLOBIN. 12.1 g/dL (12.0-16.0); LYMPHOCYTES % 11.2 % (20.0-50.0); MEAN CORPUSCULAR VOLUME 78.5 fL (81.0-99.0); MEAN PLATELET VOLUME 9.7 fl (7.4-10.4); MONOCYTES % 10.8 % (2.0-8.0); NEUTROPHILS % 77.1 % (40.0-76.0); PLATELET 213 x1000/uL (130-400); RED BLOOD CELL COUNT 4.84 mill/uL (4.2-5.4); RED CELL DISTRIBUTION WIDTH 19.4 % (11.6-14.6)
[2019-04-30] MEDS: BLOOD SUGAR DIAGNOSTIC STRIP TEST SCH ×4 (06:00→18:32)
[2019-04-30 06:02] LABS: PHOSPHORUS 6.1 mg/dL (2.5-4.9)
[2019-04-30] MEDS: MORPHINE SULFATE 2 MG/ML CPJ (NOT FOR IM USE) IV PRN (07:03)
[2019-04-30] MEDS: METHYLPREDNISOLONE SOD SUCC 40 MG/ML VIAL IV SCH ×3 (07:09→21:22)
[2019-04-30] MEDS: ENOXAPARIN 30MG/0.3ML SYR SUBCUT SCH ×2 (07:09→18:32)
[2019-04-30] MEDS: NYSTATIN POWDER 15GM TOP SCH ×3 (09:00→17:00)
[2019-04-30] MEDS: SODIUM CHLORIDE 0.45% 1,000 ML IV SCH (09:56)
[2019-04-30] MEDS: AMLODIPINE 2.5MG TABLET PO SCH (10:40)
[2019-04-30] MEDS: GABAPENTIN SOLN 50MG/1ML UDC PO SCH (10:41)
[2019-04-30] MEDS: CARVEDILOL 12.5MG TABLET PO SCH ×2 (10:41→21:22)
[2019-04-30] MEDS ORDERED: HYDRALAZINE 20MG/ML VIAL IV PRN (11:15)
[2019-04-30] MEDS: FAMOTIDINE 20MG TABLET PO SCH (21:21)
[2019-04-30] MEDS: AMLODIPINE 5MG TABLET PO SCH (21:22)
[2019-04-30] MEDS: ATORVASTATIN CALCIUM 20MG TABLET PO SCH (21:22)
[2019-05-01] VITALS (24 sets, daily range): BP systolic 121–165; BP diastolic 60–89
[2019-05-01] MEDS: BLOOD SUGAR DIAGNOSTIC STRIP TEST SCH ×4 (00:09→18:45)
[2019-05-01] MEDS: INSULIN LISPRO 100 UNITS/ML SUBCUT SCH ×3 (00:16→18:00)
[2019-05-01] MEDS: IPRATROPIUM/ALBUTEROL 0.5-3(2.5)MG/3ML NEB HHN SCH ×6 (00:40→20:22)
[2019-05-01] MEDS: MEROPENEM 1000MG in NORMAL SALINE 100ML IV SCH ×2 (03:13→15:30)
[2019-05-01] MEDS: LORAZEPAM 2MG/ML CPJ IV PRN ×2 (04:09→22:33)
[2019-05-01] MEDS: SODIUM CHLORIDE 0.45% 1,000 ML IV SCH (05:06)
[2019-05-01] MEDS: METHYLPREDNISOLONE SOD SUCC 40 MG/ML VIAL IV SCH ×3 (05:40→21:27)
[2019-05-01] MEDS: ENOXAPARIN 30MG/0.3ML SYR SUBCUT SCH ×2 (05:40→18:44)
[2019-05-01 06:08] LABS: BASOPHILS % 1.1 % (0.0-2.0); HEMATOCRIT. 38.9 % (36.0-48.0); HEMOGLOBIN. 12.6 g/dL (12.0-16.0); LYMPHOCYTES % 8.8 % (20.0-50.0); MEAN CORPUSCULAR HEMOGLOBIN 25.3 pg (28.0-32.0); MEAN CORPUSCULAR VOLUME 78.2 fL (81.0-99.0); MEAN PLATELET VOLUME 9.8 fl (7.4-10.4); MONOCYTES % 5.8 % (2.0-8.0); NEUTROPHILS % 84.3 % (40.0-76.0); PLATELET 233 x1000/uL (130-400); RED BLOOD CELL COUNT 4.97 mill/uL (4.2-5.4); RED CELL DISTRIBUTION WIDTH 19.7 % (11.6-14.6)
[2019-05-01 06:32] LABS: PHOSPHORUS 5.3 mg/dL (2.5-4.9)
[2019-05-01] MEDS: AMLODIPINE 5MG TABLET PO SCH ×2 (09:00→21:28)
[2019-05-01] MEDS: CARVEDILOL 12.5MG TABLET PO SCH ×2 (09:00→21:28)
[2019-05-01] MEDS: GABAPENTIN SOLN 50MG/1ML UDC PO SCH (09:00)
[2019-05-01] MEDS: NYSTATIN POWDER 15GM TOP SCH ×3 (09:00→17:00)
[2019-05-01 09:29] LABS: BG BASE EXCESS 3.8 mmol/L (-2.0-2.0); BG CARBOXYHEMOGLOBIN 0.3 % (0.5-1.5); BG DEOXYHEMOGLOBIN 4.1 % (0.0-5.0); BG FRACTION INSPIRED OXYGEN 35; BG HCO3 ACT 30.8 mmol/L (22.0-26.0); BG METHEMOGLOBIN 0.3 % (0.0-1.5); BG OXYGEN SATURATION 95.9 % (92.0-98.5); BG OXYHEMOGLOBIN 95.3 % (94.0-97.0); BG PH 7.351 (7.350-7.450); BG PO2 86.6 mmHg (75.0-100.0); BG PRESSURE SUPPORT 14; BG SAMPLE SITE RIGHT RADIAL; BG TIDAL VOLUME(mL) 500 mL; BG TOTAL HEMOGLOBIN 13.3 g/dL (12.0-18.0); BG VENT MODE VENT - SIMV; BG VENT RATE 12 set
[2019-05-01] MEDS: VANCOMYCIN 1 G PREMIX 200 ML IV SCH (10:00)
[2019-05-01] MEDS: DEXTROSE 5% WATER 1,000 ML IV SCH (12:30)
[2019-05-01] MEDS ORDERED: DEXTROSE 50% WATER 50ML SYRINGE IV PRN (12:30)
[2019-05-01] MEDS ORDERED: INSULIN GLARGINE UD 100 UNITS/ML SYR SUBCUT NR (14:00)
[2019-05-01] MEDS ORDERED: SODIUM POLYSTYRENE SULFONATE 15 G/60 ML BOT PO NR (14:00)
[2019-05-01] MEDS: FAMOTIDINE 20MG TABLET PO SCH (21:28)
[2019-05-01] MEDS: ATORVASTATIN CALCIUM 20MG TABLET PO SCH (21:28)
[2019-05-01] MEDS ORDERED: INSULIN GLARGINE UD 100 UNITS/ML SYR SUBCUT SCH (22:00)
[2019-05-02] VITALS (25 sets, daily range): BP systolic 117–164; BP diastolic 52–89
[2019-05-02] MEDS: BLOOD SUGAR DIAGNOSTIC STRIP TEST SCH ×4 (00:10→18:50)
[2019-05-02] MEDS: INSULIN LISPRO 100 UNITS/ML SUBCUT SCH ×4 (00:17→18:20)
[2019-05-02] MEDS: IPRATROPIUM/ALBUTEROL 0.5-3(2.5)MG/3ML NEB HHN SCH ×5 (00:17→20:12)
[2019-05-02] MEDS: MEROPENEM 1000MG in NORMAL SALINE 100ML IV SCH ×2 (03:44→15:30)
[2019-05-02] MEDS: LORAZEPAM 2MG/ML CPJ IV PRN ×2 (04:44→20:33)
[2019-05-02 06:07] LABS: HEMATOCRIT. 40.1 % (36.0-48.0); HEMOGLOBIN. 12.8 g/dL (12.0-16.0); LYMPHOCYTES % 10.8 % (20.0-50.0); MEAN CORPUSCULAR HEMOGLOBIN 25.2 pg (28.0-32.0); MEAN CORPUSCULAR VOLUME 79.1 fL (81.0-99.0); MEAN PLATELET VOLUME 10.1 fl (7.4-10.4); MONOCYTES % 6.8 % (2.0-8.0); NEUTROPHILS % 81.4 % (40.0-76.0); PLATELET 233 x1000/uL (130-400); RED BLOOD CELL COUNT 5.07 mill/uL (4.2-5.4); RED CELL DISTRIBUTION WIDTH 19.3 % (11.6-14.6)
[2019-05-02] MEDS: METHYLPREDNISOLONE SOD SUCC 40 MG/ML VIAL IV SCH ×2 (06:15→15:00)
[2019-05-02] MEDS: ENOXAPARIN 30MG/0.3ML SYR SUBCUT SCH ×2 (06:15→18:28)
[2019-05-02] MEDS: DEXTROSE 5% WATER 1,000 ML IV SCH (08:30)
[2019-05-02] MEDS: NYSTATIN POWDER 15GM TOP SCH ×3 (09:00→17:00)
[2019-05-02] MEDS: AMLODIPINE 5MG TABLET PO SCH ×2 (09:00→20:33)
[2019-05-02] MEDS: CARVEDILOL 12.5MG TABLET PO SCH ×2 (09:00→20:34)
[2019-05-02] MEDS: GABAPENTIN SOLN 50MG/1ML UDC PO SCH (09:00)
[2019-05-02] MEDS: VANCOMYCIN 1 G PREMIX 200 ML IV SCH (10:00)
[2019-05-02 10:41] LABS: BG BASE EXCESS 7.7 mmol/L (-2.0-2.0); BG CARBOXYHEMOGLOBIN 0.3 % (0.5-1.5); BG DEOXYHEMOGLOBIN 5.3 % (0.0-5.0); BG FRACTION INSPIRED OXYGEN 35; BG HCO3 ACT 34.3 mmol/L (22.0-26.0); BG METHEMOGLOBIN 0.1 % (0.0-1.5); BG OXYGEN SATURATION 94.7 % (92.0-98.5); BG OXYHEMOGLOBIN 94.3 % (94.0-97.0); BG PCO2 56.2 mmHg (35.0-45.0); BG PH 7.403 (7.350-7.450); BG PO2 77.2 mmHg (75.0-100.0); BG PRESSURE SUPPORT 14; BG SAMPLE SITE RIGHT RADIAL; BG TIDAL VOLUME(mL) 500 mL; BG TOTAL HEMOGLOBIN 13.5 g/dL (12.0-18.0); BG VENT MODE VENT - SIMV; BG VENT RATE 12 set
[2019-05-02] MEDS ORDERED: DEXTROSE 50% WATER 50ML SYRINGE IV PRN (11:00)
[2019-05-02] MEDS ORDERED: SODIUM POLYSTYRENE SULFONATE 15 G/60 ML BOT PO NR (12:30)
[2019-05-02] MEDS: FAMOTIDINE 20MG TABLET PO SCH (20:34)
[2019-05-02] MEDS: ATORVASTATIN CALCIUM 20MG TABLET PO SCH (20:34)
[2019-05-02] MEDS: INSULIN GLARGINE UD 100 UNITS/ML SYR SUBCUT SCH (21:22)
[2019-05-03] VITALS (33 sets, daily range): BP systolic 84–162; BP diastolic 43–95
[2019-05-03] MEDS: IPRATROPIUM/ALBUTEROL 0.5-3(2.5)MG/3ML NEB HHN SCH ×5 (00:02→20:34)
[2019-05-03] MEDS: BLOOD SUGAR DIAGNOSTIC STRIP TEST SCH ×5 (00:16→23:28)
[2019-05-03] MEDS: DEXTROSE 5% WATER 1,000 ML IV SCH ×3 (00:19→23:39)
[2019-05-03] MEDS: INSULIN LISPRO 100 UNITS/ML SUBCUT SCH ×5 (00:20→23:39)
[2019-05-03] MEDS: LORAZEPAM 2MG/ML CPJ IV PRN ×2 (01:06→20:48)
[2019-05-03] MEDS: MEROPENEM 1000MG in NORMAL SALINE 100ML IV SCH ×2 (04:11→15:24)
[2019-05-03 06:11] LABS: EOSINOPHILS % 3.2 % (0.0-5.0); HEMATOCRIT. 39.7 % (36.0-48.0); HEMOGLOBIN. 12.6 g/dL (12.0-16.0); LYMPHOCYTES % 24.5 % (20.0-50.0); MEAN CORPUSCULAR HEMOGLOBIN 25.2 pg (28.0-32.0); MEAN CORPUSCULAR VOLUME 79.6 fL (81.0-99.0); MEAN PLATELET VOLUME 10.2 fl (7.4-10.4); MONOCYTES % 9.9 % (2.0-8.0); NEUTROPHILS % 61.4 % (40.0-76.0); PLATELET 220 x1000/uL (130-400); RED CELL DISTRIBUTION WIDTH 19.6 % (11.6-14.6)
[2019-05-03] MEDS: ENOXAPARIN 30MG/0.3ML SYR SUBCUT SCH ×2 (06:11→17:23)
[2019-05-03 08:38] LABS: BG BASE EXCESS 7.6 mmol/L (-2.0-2.0); BG CARBOXYHEMOGLOBIN 0.1 % (0.5-1.5); BG FRACTION INSPIRED OXYGEN 40; BG HCO3 ACT 34.3 mmol/L (22.0-26.0); BG METHEMOGLOBIN 0.3 % (0.0-1.5); BG OXYHEMOGLOBIN 96.6 % (94.0-97.0); BG PCO2 57.4 mmHg (35.0-45.0); BG PH 7.394 (7.350-7.450); BG PO2 96.2 mmHg (75.0-100.0); BG PRESSURE SUPPORT 14; BG SAMPLE SITE LEFT RADIAL; BG TIDAL VOLUME(mL) 500 mL; BG TOTAL HEMOGLOBIN 13.5 g/dL (12.0-18.0); BG VENT MODE VENT - SIMV; BG VENT RATE 12 set
[2019-05-03] MEDS: METHYLPREDNISOLONE SOD SUCC 40 MG/ML VIAL IV SCH (08:53)
[2019-05-03] MEDS: CARVEDILOL 12.5MG TABLET PO SCH ×2 (08:54→20:47)
[2019-05-03] MEDS: AMLODIPINE 5MG TABLET PO SCH ×2 (08:54→20:47)
[2019-05-03] MEDS: NYSTATIN POWDER 15GM TOP SCH ×3 (08:54→16:16)
[2019-05-03] MEDS: GABAPENTIN SOLN 50MG/1ML UDC PO SCH (09:45)
[2019-05-03] MEDS: INSULIN GLARGINE UD 100 UNITS/ML SYR SUBCUT SCH ×2 (09:46→23:00)
[2019-05-03] MEDS: VANCOMYCIN 1 G PREMIX 200 ML IV SCH (09:46)
[2019-05-03] MEDS: QUETIAPINE FUMARATE 25MG TABLET PO SCH ×2 (12:06→23:38)
[2019-05-03 15:40] LABS: SODIUM URINE RANDOM 21 mEq/L
[2019-05-03] MEDS: FAMOTIDINE 20MG TABLET PO SCH (20:46)
[2019-05-03] MEDS: ACETAMINOPHEN 325MG TABLET PO PRN (20:46)
[2019-05-03] MEDS: ATORVASTATIN CALCIUM 20MG TABLET PO SCH (20:48)
[2019-05-04] VITALS (44 sets, daily range): BP systolic 114–179; BP diastolic 47–103
[2019-05-04] MEDS: IPRATROPIUM/ALBUTEROL 0.5-3(2.5)MG/3ML NEB HHN SCH ×7 (00:41→23:56)
[2019-05-04] MEDS: LORAZEPAM 2MG/ML CPJ IV PRN ×4 (02:08→23:01)
[2019-05-04] MEDS: MEROPENEM 1000MG in NORMAL SALINE 100ML IV SCH ×2 (02:47→15:59)
[2019-05-04 05:41] LABS: HEMATOCRIT. 41.1 % (36.0-48.0); HEMOGLOBIN. 12.9 g/dL (12.0-16.0); MEAN CORPUSCULAR HEMOGLOBIN 25.1 pg (28.0-32.0); MEAN CORPUSCULAR VOLUME 79.8 fL (81.0-99.0); RED BLOOD CELL COUNT 5.14 mill/uL (4.2-5.4); RED CELL DISTRIBUTION WIDTH 19.3 % (11.6-14.6)
[2019-05-04] MEDS: BLOOD SUGAR DIAGNOSTIC STRIP TEST SCH ×3 (05:53→18:15)
[2019-05-04] MEDS: INSULIN LISPRO 100 UNITS/ML SUBCUT SCH ×3 (06:07→18:00)
[2019-05-04] MEDS: ENOXAPARIN 30MG/0.3ML SYR SUBCUT SCH ×3 (06:09→18:16)
[2019-05-04 06:11] LABS: PHOSPHORUS 4.8 mg/dL (2.5-4.9)
[2019-05-04] MEDS: METHYLPREDNISOLONE SOD SUCC 40 MG/ML VIAL IV SCH (09:01)
[2019-05-04] MEDS: CARVEDILOL 12.5MG TABLET PO SCH ×2 (09:01→20:58)
[2019-05-04] MEDS: VANCOMYCIN 1 G PREMIX 200 ML IV SCH (09:02)
[2019-05-04] MEDS: AMLODIPINE 5MG TABLET PO SCH ×2 (09:02→20:57)
[2019-05-04] MEDS: DEXTROSE 5% WATER 1,000 ML IV SCH ×2 (09:04→22:07)
[2019-05-04] MEDS: NYSTATIN POWDER 15GM TOP SCH ×3 (09:04→17:00)
[2019-05-04 09:06] LABS: MEAN PLATELET VOLUME 10.2 fl (7.4-10.4); PLATELET 202 x1000/uL (130-400); PLATELET ESTIMATE NORMAL
[2019-05-04] MEDS: GABAPENTIN SOLN 50MG/1ML UDC PO SCH (09:06)
[2019-05-04 09:07] LABS: ANA IFA Negative (.); GLOMERULAR BASEMENT MEMB AB 3 units (0-20)
[2019-05-04] MEDS: INSULIN GLARGINE UD 100 UNITS/ML SYR SUBCUT SCH ×2 (10:10→23:00)
[2019-05-04 10:11] LABS: COMPLEMENT C3 194 mg/dL (82-167)
[2019-05-04] MEDS: QUETIAPINE FUMARATE 25MG TABLET PO SCH (11:33)
[2019-05-04 13:14] LABS: ANTI-MYELOPEROXIDASE AB < 9.0 U/mL (0.0-9.0); ANTI-PROTEINASE 3 ABS < 3.5 U/mL (0.0-3.5)
[2019-05-04] MEDS: PANTOPRAZOLE SODIUM 40 MG/VIAL IV SCH (20:57)
[2019-05-04] MEDS: ATORVASTATIN CALCIUM 20MG TABLET PO SCH (20:58)
[2019-05-05] VITALS (44 sets, daily range): BP systolic 120–181; BP diastolic 61–121
[2019-05-05] MEDS ORDERED: INSULIN LISPRO 100 UNITS/ML SUBCUT SCH
[2019-05-05] MEDS ORDERED: DEXTROSE 50% WATER 50ML SYRINGE IV PRN
[2019-05-05] MEDS ORDERED: BLOOD SUGAR DIAGNOSTIC STRIP TEST SCH
[2019-05-05] MEDS: BLOOD SUGAR DIAGNOSTIC STRIP TEST SCH ×6 (00:18→17:27)
[2019-05-05] MEDS: QUETIAPINE FUMARATE 25MG TABLET PO SCH ×2 (00:19→11:49)
[2019-05-05] MEDS: INSULIN LISPRO 100 UNITS/ML SUBCUT SCH ×6 (00:20→17:33)
[2019-05-05] MEDS: LORAZEPAM 2MG/ML CPJ IV PRN ×3 (03:44→22:19)
[2019-05-05] MEDS: IPRATROPIUM/ALBUTEROL 0.5-3(2.5)MG/3ML NEB HHN SCH ×5 (04:18→20:21)
[2019-05-05] MEDS: MEROPENEM 1000MG in NORMAL SALINE 100ML IV SCH ×2 (04:22→15:24)
[2019-05-05 05:45] LABS: BASOPHILS % 0.9 % (0.0-2.0); HEMATOCRIT. 38.2 % (36.0-48.0); HEMOGLOBIN. 12.1 g/dL (12.0-16.0); LYMPHOCYTES % 21.2 % (20.0-50.0); MEAN CORPUSCULAR HEMOGLOBIN 25.2 pg (28.0-32.0); MEAN CORPUSCULAR VOLUME 79.4 fL (81.0-99.0); MEAN PLATELET VOLUME 9.9 fl (7.4-10.4); MONOCYTES % 7.5 % (2.0-8.0); NEUTROPHILS % 66.4 % (40.0-76.0); PLATELET 183 x1000/uL (130-400); RED BLOOD CELL COUNT 4.81 mill/uL (4.2-5.4); RED CELL DISTRIBUTION WIDTH 18.9 % (11.6-14.6)
[2019-05-05] MEDS: ENOXAPARIN 30MG/0.3ML SYR SUBCUT SCH ×2 (05:45→17:20)
[2019-05-05 05:46] LABS: PROTHROMBIN TIME 10.7 sec (9.6-11.0)
[2019-05-05 06:06] LABS: PHOSPHORUS 4.1 mg/dL (2.5-4.9)
[2019-05-05] MEDS: AMLODIPINE 5MG TABLET PO SCH ×2 (08:09→21:20)
[2019-05-05] MEDS: CARVEDILOL 12.5MG TABLET PO SCH ×2 (08:09→21:20)
[2019-05-05] MEDS: GABAPENTIN SOLN 50MG/1ML UDC PO SCH (08:12)
[2019-05-05] MEDS: METHYLPREDNISOLONE SOD SUCC 40 MG/ML VIAL IV SCH (08:18)
[2019-05-05] MEDS: PANTOPRAZOLE SODIUM 40 MG/VIAL IV SCH ×2 (08:18→21:19)
[2019-05-05] MEDS: NYSTATIN POWDER 15GM TOP SCH ×3 (08:18→16:10)
[2019-05-05 08:47] LABS: BG BASE EXCESS 5.7 mmol/L (-2.0-2.0); BG CARBOXYHEMOGLOBIN 0.5 % (0.5-1.5); BG DEOXYHEMOGLOBIN 2.1 % (0.0-5.0); BG FRACTION INSPIRED OXYGEN 50; BG HCO3 ACT 31.6 mmol/L (22.0-26.0); BG METHEMOGLOBIN 0.2 % (0.0-1.5); BG OXYGEN SATURATION 97.9 % (92.0-98.5); BG OXYHEMOGLOBIN 97.2 % (94.0-97.0); BG PCO2 51.7 mmHg (35.0-45.0); BG PH 7.404 (7.350-7.450); BG PO2 112.2 mmHg (75.0-100.0); BG PRESSURE SUPPORT 14; BG SAMPLE SITE LEFT RADIAL; BG TIDAL VOLUME(mL) 500 mL; BG TOTAL HEMOGLOBIN 11.9 g/dL (12.0-18.0); BG VENT MODE VENT - SIMV; BG VENT RATE 12 set
[2019-05-05] MEDS ORDERED: FENTANYL CITRATE/PF 50MCG/ML 2ML VIAL ONE (09:52)
[2019-05-05] MEDS ORDERED: MIDAZOLAM HCL 5 MG/5 ML VIAL ONE (09:52)
[2019-05-05] MEDS: INSULIN GLARGINE UD 100 UNITS/ML SYR SUBCUT SCH ×2 (10:08→21:23)
[2019-05-05] MEDS: VANCOMYCIN 1 G PREMIX 200 ML IV SCH (10:08)
[2019-05-05] MEDS ORDERED: MIDAZOLAM HCL 2 MG/2 ML VIAL IV PRN (10:27)
[2019-05-05] MEDS ORDERED: FENTANYL CITRATE/PF 50MCG/ML 2ML VIAL IV PRN (10:28)
[2019-05-05] MEDS: DEXTROSE 5% WATER 1,000 ML IV SCH (12:13)
[2019-05-05] MEDS ORDERED: ROCURONIUM BROMIDE 10MG/ML VIAL 5ML IV ONE (12:22)
[2019-05-05] MEDS ORDERED: MIDAZOLAM HCL 2 MG/2 ML VIAL ONE ×2 (12:22→12:35)
[2019-05-05] MEDS ORDERED: MIDAZOLAM HCL 5 MG/5 ML VIAL IV ONE (12:45)
[2019-05-05] MEDS ORDERED: MIDAZOLAM HCL 5 MG/5 ML VIAL IV NR (12:45)
[2019-05-05] MEDS ORDERED: MIDAZOLAM HCL 5 MG/ML VIAL IV NR (12:45)
[2019-05-05 14:12] LABS: ATYPICAL P-ANCA <1:20 titer (Neg:<1:20); CYTOPLASMIC C-ANCA <1:20 titer (Neg:<1:20); PERINUCLEAR P-ANCA <1:20 titer (Neg:<1:20)
[2019-05-05] MEDS: MORPHINE SULFATE 2 MG/ML CPJ (NOT FOR IM USE) IV PRN ×2 (14:42→22:53)
[2019-05-05] MEDS: ATORVASTATIN CALCIUM 20MG TABLET PO SCH (21:19)
[2019-05-06] VITALS (47 sets, daily range): BP systolic 111–159; BP diastolic 64–89
[2019-05-06] MEDS: BLOOD SUGAR DIAGNOSTIC STRIP TEST SCH ×4 (00:13→17:58)
[2019-05-06] MEDS: QUETIAPINE FUMARATE 25MG TABLET PO SCH ×2 (00:13→11:57)
[2019-05-06] MEDS: DEXTROSE 5% WATER 1,000 ML IV SCH ×2 (00:14→16:11)
[2019-05-06] MEDS: IPRATROPIUM/ALBUTEROL 0.5-3(2.5)MG/3ML NEB HHN SCH ×6 (00:16→21:08)
[2019-05-06] MEDS: MEROPENEM 1000MG in NORMAL SALINE 100ML IV SCH ×2 (03:25→16:11)
[2019-05-06 05:17] LABS: BASOPHILS % 0.8 % (0.0-2.0); HEMATOCRIT. 38.6 % (36.0-48.0); HEMOGLOBIN. 12.3 g/dL (12.0-16.0); LYMPHOCYTES % 17.6 % (20.0-50.0); MEAN CORPUSCULAR VOLUME 78.6 fL (81.0-99.0); MEAN PLATELET VOLUME 10.5 fl (7.4-10.4); MONOCYTES % 8.5 % (2.0-8.0); NEUTROPHILS % 72.1 % (40.0-76.0); PLATELET 168 x1000/uL (130-400); RED BLOOD CELL COUNT 4.91 mill/uL (4.2-5.4); RED CELL DISTRIBUTION WIDTH 18.8 % (11.6-14.6)
[2019-05-06 05:41] LABS: PHOSPHORUS 3.3 mg/dL (2.5-4.9)
[2019-05-06] MEDS: ENOXAPARIN 30MG/0.3ML SYR SUBCUT SCH ×2 (06:04→18:20)
[2019-05-06] MEDS: INSULIN LISPRO 100 UNITS/ML SUBCUT SCH ×4 (06:05→18:20)
[2019-05-06] MEDS: LORAZEPAM 2MG/ML CPJ IV PRN (06:43)
[2019-05-06] MEDS: AMLODIPINE 5MG TABLET PO SCH ×2 (09:00→21:32)
[2019-05-06] MEDS: INSULIN GLARGINE UD 100 UNITS/ML SYR SUBCUT SCH ×2 (09:07→21:32)
[2019-05-06] MEDS: VANCOMYCIN 1 G PREMIX 200 ML IV SCH (09:07)
[2019-05-06] MEDS: METHYLPREDNISOLONE SOD SUCC 40 MG/ML VIAL IV SCH (09:07)
[2019-05-06] MEDS: GABAPENTIN SOLN 50MG/1ML UDC PO SCH (09:07)
[2019-05-06] MEDS: NYSTATIN POWDER 15GM TOP SCH ×3 (09:08→16:11)
[2019-05-06] MEDS: CARVEDILOL 12.5MG TABLET PO SCH ×2 (09:08→21:32)
[2019-05-06] MEDS: ATORVASTATIN CALCIUM 20MG TABLET PO SCH (21:32)
[2019-05-07] VITALS (31 sets, daily range): BP systolic 113–160; BP diastolic 69–93
[2019-05-07] MEDS: BLOOD SUGAR DIAGNOSTIC STRIP TEST SCH ×4 (00:21→18:36)
[2019-05-07] MEDS: INSULIN LISPRO 100 UNITS/ML SUBCUT SCH ×4 (00:24→18:48)
[2019-05-07] MEDS: QUETIAPINE FUMARATE 25MG TABLET PO SCH ×2 (00:24→13:12)
[2019-05-07] MEDS: IPRATROPIUM/ALBUTEROL 0.5-3(2.5)MG/3ML NEB HHN SCH ×6 (00:40→20:39)
[2019-05-07 05:18] LABS: EOSINOPHILS % 0.9 % (0.0-5.0); HEMATOCRIT. 36.1 % (36.0-48.0); HEMOGLOBIN. 11.7 g/dL (12.0-16.0); LYMPHOCYTES % 19.5 % (20.0-50.0); MEAN CORPUSCULAR HEMOGLOBIN 25.2 pg (28.0-32.0); MEAN CORPUSCULAR VOLUME 77.8 fL (81.0-99.0); MEAN PLATELET VOLUME 10.6 fl (7.4-10.4); MONOCYTES % 8.7 % (2.0-8.0); NEUTROPHILS % 69.9 % (40.0-76.0); PLATELET 148 x1000/uL (130-400); RED BLOOD CELL COUNT 4.64 mill/uL (4.2-5.4); RED CELL DISTRIBUTION WIDTH 18.4 % (11.6-14.6)
[2019-05-07 05:25] LABS: CHLORIDE 108 mEq/L (98-107)
[2019-05-07] MEDS: ENOXAPARIN 30MG/0.3ML SYR SUBCUT SCH ×2 (05:59→18:36)
[2019-05-07 09:04] LABS: BG BASE EXCESS 2.5 mmol/L (-2.0-2.0); BG CARBOXYHEMOGLOBIN 0.6 % (0.5-1.5); BG DEOXYHEMOGLOBIN 2.6 % (0.0-5.0); BG FRACTION INSPIRED OXYGEN 35; BG HCO3 ACT 28.1 mmol/L (22.0-26.0); BG METHEMOGLOBIN 0.3 % (0.0-1.5); BG OXYGEN SATURATION 97.4 % (92.0-98.5); BG OXYHEMOGLOBIN 96.5 % (94.0-97.0); BG PCO2 47.4 mmHg (35.0-45.0); BG PH 7.391 (7.350-7.450); BG PO2 100.8 mmHg (75.0-100.0); BG PRESSURE SUPPORT 12; BG SAMPLE SITE RIGHT RADIAL; BG TIDAL VOLUME(mL) 500 mL; BG TOTAL HEMOGLOBIN 12.6 g/dL (12.0-18.0); BG VENT MODE VENT - SIMV; BG VENT RATE 8 set
[2019-05-07] MEDS: CARVEDILOL 12.5MG TABLET PO SCH ×2 (09:12→22:06)
[2019-05-07] MEDS: GABAPENTIN SOLN 50MG/1ML UDC PO SCH (09:13)
[2019-05-07] MEDS: AMLODIPINE 5MG TABLET PO SCH ×2 (09:13→22:07)
[2019-05-07] MEDS: NYSTATIN POWDER 15GM TOP SCH ×3 (09:13→17:00)
[2019-05-07] MEDS: PREDNISONE 20MG TABLET PO SCH (09:13)
[2019-05-07] MEDS: INSULIN GLARGINE UD 100 UNITS/ML SYR SUBCUT SCH ×2 (09:14→22:34)
[2019-05-07] MEDS: MORPHINE SULFATE 2 MG/ML CPJ (NOT FOR IM USE) IV PRN (09:58)
[2019-05-07] MEDS: ATORVASTATIN CALCIUM 20MG TABLET PO SCH (22:07)
[2019-05-08] VITALS (12 sets, daily range): BP systolic 140–184; BP diastolic 61–101
[2019-05-08] MEDS: IPRATROPIUM/ALBUTEROL 0.5-3(2.5)MG/3ML NEB HHN SCH ×6 (00:43→20:09)
[2019-05-08] MEDS: MORPHINE SULFATE 2 MG/ML CPJ (NOT FOR IM USE) IV PRN ×2 (00:46→05:29)
[2019-05-08] MEDS: QUETIAPINE FUMARATE 25MG TABLET PO SCH ×3 (01:20→22:28)
[2019-05-08] MEDS: ENOXAPARIN 30MG/0.3ML SYR SUBCUT SCH ×2 (05:28→17:59)
[2019-05-08] MEDS: BLOOD SUGAR DIAGNOSTIC STRIP TEST SCH ×4 (06:00→18:00)
[2019-05-08] MEDS: INSULIN LISPRO 100 UNITS/ML SUBCUT SCH ×4 (06:00→17:58)
[2019-05-08] MEDS: PREDNISONE 20MG TABLET PO SCH (09:46)
[2019-05-08] MEDS: CARVEDILOL 12.5MG TABLET PO SCH ×2 (09:46→21:06)
[2019-05-08] MEDS: AMLODIPINE 5MG TABLET PO SCH ×2 (09:46→20:59)
[2019-05-08] MEDS: NYSTATIN POWDER 15GM TOP SCH ×3 (09:47→17:00)
[2019-05-08] MEDS: INSULIN GLARGINE UD 100 UNITS/ML SYR SUBCUT SCH ×2 (09:48→22:30)
[2019-05-08] MEDS: GABAPENTIN SOLN 50MG/1ML UDC PO SCH (09:49)
[2019-05-08 10:36] LABS: BASOPHILS % 0.7 % (0.0-2.0); EOSINOPHILS % 1.5 % (0.0-5.0); HEMATOCRIT. 35.8 % (36.0-48.0); HEMOGLOBIN. 11.5 g/dL (12.0-16.0); LYMPHOCYTES % 19.9 % (20.0-50.0); MEAN CORPUSCULAR VOLUME 77.8 fL (81.0-99.0); MEAN PLATELET VOLUME 10.5 fl (7.4-10.4); MONOCYTES % 9.9 % (2.0-8.0); PLATELET 146 x1000/uL (130-400); RED BLOOD CELL COUNT 4.61 mill/uL (4.2-5.4); RED CELL DISTRIBUTION WIDTH 18.5 % (11.6-14.6)
[2019-05-08 10:48] LABS: CHLORIDE 111 mEq/L (98-107)
[2019-05-08] MEDS ORDERED: HYDROCODONE/ACETAMINOPHEN 5/325MG TABLET PO PRN (11:00)
[2019-05-08] MEDS ORDERED: LORAZEPAM 2MG/ML CPJ IV PRN (11:00)
[2019-05-08] MEDS: ACETYLCYSTEINE 100MG/ML 10% VIAL 4ML INH SCH (15:10)
[2019-05-08] MEDS: ATORVASTATIN CALCIUM 20MG TABLET PO SCH (20:59)
[2019-05-09] VITALS (12 sets, daily range): BP systolic 141–182; BP diastolic 58–86
[2019-05-09] MEDS: ACETYLCYSTEINE 100MG/ML 10% VIAL 4ML INH SCH ×3 (00:01→16:10)
[2019-05-09] MEDS: IPRATROPIUM/ALBUTEROL 0.5-3(2.5)MG/3ML NEB HHN SCH ×6 (00:01→20:22)
[2019-05-09] MEDS: BLOOD SUGAR DIAGNOSTIC STRIP TEST SCH ×5 (00:18→23:39)
[2019-05-09] MEDS: ENOXAPARIN 30MG/0.3ML SYR SUBCUT SCH (05:29)
[2019-05-09] MEDS: INSULIN LISPRO 100 UNITS/ML SUBCUT SCH ×5 (05:36→23:39)
[2019-05-09 06:11] LABS: BASOPHILS % 0.8 % (0.0-2.0); HEMATOCRIT. 33.6 % (36.0-48.0); LYMPHOCYTES % 22.3 % (20.0-50.0); MEAN CORPUSCULAR HEMOGLOBIN 25.3 pg (28.0-32.0); MEAN CORPUSCULAR VOLUME 77.5 fL (81.0-99.0); MEAN PLATELET VOLUME 11.1 fl (7.4-10.4); MONOCYTES % 10.4 % (2.0-8.0); NEUTROPHILS % 64.5 % (40.0-76.0); PLATELET 118 x1000/uL (130-400); RED BLOOD CELL COUNT 4.33 mill/uL (4.2-5.4); RED CELL DISTRIBUTION WIDTH 18.4 % (11.6-14.6)
[2019-05-09 06:55] LABS: CHLORIDE 110 mEq/L (98-107)
[2019-05-09 07:06] LABS: PHOSPHORUS 3.7 mg/dL (2.5-4.9)
[2019-05-09] MEDS: GABAPENTIN SOLN 50MG/1ML UDC PO SCH (09:36)
[2019-05-09] MEDS: CARVEDILOL 12.5MG TABLET PO SCH ×2 (09:36→21:06)
[2019-05-09] MEDS: PREDNISONE 20MG TABLET PO SCH (09:37)
[2019-05-09] MEDS: NYSTATIN POWDER 15GM TOP SCH ×3 (09:37→17:00)
[2019-05-09] MEDS: AMLODIPINE 5MG TABLET PO SCH ×2 (09:37→21:06)
[2019-05-09] MEDS: INSULIN GLARGINE UD 100 UNITS/ML SYR SUBCUT SCH ×2 (09:38→23:38)
[2019-05-09] MEDS: QUETIAPINE FUMARATE 25MG TABLET PO SCH ×2 (12:00→23:39)
[2019-05-09] MEDS: FAMOTIDINE 20MG/2ML VIAL IV SCH (12:00)
[2019-05-09] MEDS: HYDRALAZINE HCL 50MG TABLET PO SCH (21:07)
[2019-05-09] MEDS: ATORVASTATIN CALCIUM 20MG TABLET PO SCH (21:07)
[2019-05-10] VITALS (10 sets, daily range): BP systolic 117–151; BP diastolic 49–75
[2019-05-10] MEDS: IPRATROPIUM/ALBUTEROL 0.5-3(2.5)MG/3ML NEB HHN SCH ×4 (00:36→12:35)
[2019-05-10] MEDS: ACETYLCYSTEINE 100MG/ML 10% VIAL 4ML INH SCH ×2 (00:37→08:29)
[2019-05-10] MEDS: BLOOD SUGAR DIAGNOSTIC STRIP TEST SCH ×2 (05:41→11:50)
[2019-05-10] MEDS: INSULIN LISPRO 100 UNITS/ML SUBCUT SCH ×2 (05:41→11:51)
[2019-05-10 05:52] LABS: BASOPHILS % 0.5 % (0.0-2.0); EOSINOPHILS % 1.5 % (0.0-5.0); HEMATOCRIT. 34.3 % (36.0-48.0); HEMOGLOBIN. 11.2 g/dL (12.0-16.0); LYMPHOCYTES % 20.8 % (20.0-50.0); MEAN CORPUSCULAR HEMOGLOBIN 25.2 pg (28.0-32.0); MEAN CORPUSCULAR VOLUME 77.1 fL (81.0-99.0); MEAN PLATELET VOLUME 11.4 fl (7.4-10.4); MONOCYTES % 10.4 % (2.0-8.0); NEUTROPHILS % 66.8 % (40.0-76.0); PLATELET 157 x1000/uL (130-400); RED BLOOD CELL COUNT 4.45 mill/uL (4.2-5.4); RED CELL DISTRIBUTION WIDTH 18.3 % (11.6-14.6)
[2019-05-10 06:51] LABS: CHLORIDE 110 mEq/L (98-107)
[2019-05-10 07:01] LABS: PHOSPHORUS 3.9 mg/dL (2.5-4.9)
[2019-05-10] MEDS: FAMOTIDINE 20MG/2ML VIAL IV SCH (08:48)
[2019-05-10] MEDS: HYDRALAZINE HCL 50MG TABLET PO SCH (08:48)
[2019-05-10] MEDS: AMLODIPINE 5MG TABLET PO SCH (08:49)
[2019-05-10] MEDS: CARVEDILOL 12.5MG TABLET PO SCH (08:49)
[2019-05-10] MEDS: GABAPENTIN SOLN 50MG/1ML UDC PO SCH (08:50)
[2019-05-10] MEDS: NYSTATIN POWDER 15GM TOP SCH ×2 (08:50→13:08)
[2019-05-10] MEDS ORDERED: ENOXAPARIN 40MG/0.4ML SYR SUBCUT SCH (09:00)
[2019-05-10] MEDS: INSULIN GLARGINE UD 100 UNITS/ML SYR SUBCUT SCH (09:13)
[2019-05-10] MEDS: QUETIAPINE FUMARATE 25MG TABLET PO SCH (10:31)
[2019-05-10] MEDS ORDERED: AMLO5TAB88 PO (13:55)
[2019-05-10] MEDS ORDERED: HYDR-4135 PO (13:55)
[2019-05-10] MEDS ORDERED: QUET25TA PO (13:55)
== END 2019-05-10 16:30 | DRG 4 ==
LOC: ER 08:41 → CVICU 11:47 → EDBEDREQ 11:49 → ENRESERV 13:00 → 5EST 05-07 13:05
PROVIDERS: ADMIT Internal Medicine; ATTEND Internal Medicine
PROC: 5A1955Z Respiratory Ventilation, Greater than 96 Consecutive Hours (ICD-10-PCS; principal; 2019-04-22)
PROC: 0BH17EZ Insertion of Endotracheal Airway into Trachea, Via Natural or Artificial Opening (ICD-10-PCS; 2019-04-22)
PROC: 02HV33Z Insertion of Infusion Device into Superior Vena Cava, Percutaneous Approach (ICD-10-PCS; 2019-04-24)
PROC: B548ZZA Ultrasonography of Superior Vena Cava, Guidance (ICD-10-PCS; 2019-04-24)
PROC: 0B110F4 Bypass Trachea to Cutaneous with Tracheostomy Device, Open Approach (ICD-10-PCS; 2019-05-05)
PROC: 0GBJ0ZZ Excision of Thyroid Gland Isthmus, Open Approach (ICD-10-PCS; 2019-05-05)
PROC: 0DH63UZ Insertion of Feeding Device into Stomach, Percutaneous Approach (ICD-10-PCS; 2019-05-05)
PROC: 0BJ08ZZ Inspection of Tracheobronchial Tree, Via Natural or Artificial Opening Endoscopic (ICD-10-PCS; 2019-05-05)
DX: A41.59 Other Gram-negative sepsis (principal); I50.23 Acute on chronic systolic (congestive) heart failure; G93.41 Metabolic encephalopathy; J18.9 Pneumonia, unspecified organism; E46 Unspecified protein-calorie malnutrition; N17.9 Acute kidney failure, unspecified; E11.22 Type 2 diabetes mellitus with diabetic chronic kidney disease; J96.02 Acute respiratory failure with hypercapnia; J96.01 Acute respiratory failure with hypoxia; E83.42 Hypomagnesemia; I08.1 Rheumatic disorders of both mitral and tricuspid valves; E11.42 Type 2 diabetes mellitus with diabetic polyneuropathy; R13.10 Dysphagia, unspecified; I95.9 Hypotension, unspecified; I42.9 Cardiomyopathy, unspecified; E87.2 Acidosis; E11.65 Type 2 diabetes mellitus with hyperglycemia; I25.10 Atherosclerotic heart disease of native coronary artery without angina pectoris; E78.5 Hyperlipidemia, unspecified; N39.0 Urinary tract infection, site not specified; E78.00 Pure hypercholesterolemia, unspecified; E87.1 Hypo-osmolality and hyponatremia; E87.5 Hyperkalemia; E87.0 Hyperosmolality and hypernatremia; I44.7 Left bundle-branch block, unspecified; D64.9 Anemia, unspecified; I27.29 Other secondary pulmonary hypertension; J44.9 Chronic obstructive pulmonary disease, unspecified; K29.70 Gastritis, unspecified, without bleeding; B96.1 Klebsiella pneumoniae [K. pneumoniae] as the cause of diseases classified elsewhere; N18.9 Chronic kidney disease, unspecified; I13.0 Hypertensive heart and chronic kidney disease with heart failure and stage 1 through stage 4 chronic kidney disease, or unspecified chronic kidney disease; N93.9 Abnormal uterine and vaginal bleeding, unspecified; J44.0 Chronic obstructive pulmonary disease with (acute) lower respiratory infection; Z99.11 Dependence on respirator [ventilator] status; Z95.810 Presence of automatic (implantable) cardiac defibrillator; Z83.3 Family history of diabetes mellitus; Z82.49 Family history of ischemic heart disease and other diseases of the circulatory system; Z79.899 Other long term (current) drug therapy; Z78.1 Physical restraint status; Z79.84 Long term (current) use of oral hypoglycemic drugs; Z68.39 Body mass index [BMI] 39.0-39.9, adult
CPT/HCPCS: 31500; 36415; 36600; 71045; 71250; 76770; 76856; 76937; 78580; 80048; 80061; 80202; 81003; 82375; 82550; 82553; 82672; 82805; 82962; 83001; 83036; 83520; 83605; 83735; 83880; 83935; 84100; 84134; 84145; 84300; 84443; 84478; 84484; 85379; 86160; 86256; 87070; 87077; 87186; 93005; 93306; 93970; 94002; 94003; 94640; 96365; 99291; A6261; C1725; C9113; J0330; J0360; J0696; J1650; J1815; J1940; J2060; J2185; J2250; J2270; J2543; J2704; J2920; J2930; J3010; J3105; J3370; J3475; J3490; J7030; J7060; J7070; J7512; J7608; J7620; A4315